=== PATIENT | female | born 1960 | race Caucasian/White ===

== ENCOUNTER 2023-01-15 16:26 | Emergency (ER) | payer BC, SELFPAY ==
--- NOTE | ~2023-01-15 | XR_ITS ---
Clinical Indication: Palpitations PA and lateral views of the chest: Comparison: 05/01/2015 Findings: The lungs are clear, without evidence of focal consolidation or pleural effusion. Cardiome diastinal silhouette is within normal limits. Bones and soft tissues are unremarkable. Impression: Normal chest. Reviewed, dictated and finalized at location . Impression: Normal chest.
--- NOTE | 2023-01-15 16:27 | ECG_ITS ---
Measurements Intervals Golden Rate: 98 P: 44 MO: 182 QRS: -49 QRSD: 94 T: 52 QT: 356 QTc: 456 Interpretive Statements SINUS RHYTHM LEFT AXIS DEVIATION LOW QRS VOLTAGE IN PRECORDIAL LEADS ANTERIOR INFARCT, AGE INDETERMINATE INFERIOR INFARCT, AGE INDETERMINATE ABNORMAL ECG NO PREVIOUS ECG AVAILABLE FOR COMPARISON Electronically Signed On 01-15-2023 16:51:37 CDT by Andrea Villanueva D.O.
[2023-01-15 16:48] VITALS: BP 127/78; PULSE 96; RESP 18; TEMP 36.6; O2SAT 97
[2023-01-15 16:54] LABS: Basophils Absolute Auto 0.1 K/mm3 (0.0-0.1); Basophils Percent Auto 0.7 % (0.2-1.2); Eosinophils Absolute Auto 0.1 K/mm3 (0-0.3); Eosinophils Percent Auto 1.2 % (0-4.4); Hematocrit 42.9 % (37.0-47.0); Hemoglobin 13.8 g/dL (12.0-15.0); Immature Granulocyte Absolute 0.03 K/mm3 (0.00-0.031); Immature Granulocyte Percent A 0.4 % (0-0.5); Lymphocytes Absolute Auto 1.83 K/mm3 (0.9-3.2); Lymphocytes Percent Auto 24.5 % (18.3-44.2); Mean Corpuscular HGB Conc 32.2 g/dl (32-36); Mean Corpuscular Volume 90.1 fl (80-100); Mean Platelet Volume 9.9 fl (7.4-10.4); Monocytes Absolute Auto 0.5 K/mm3 (0.1-0.6); Monocytes Percent Auto 6.6 % (2.6-8.5); Neutrophils Percent Auto 66.6 % (45.5-73.1); Platelet Count Result 210 k/mm3 (150-375); Red Blood Count 4.76 M/mm3 (4.2-5.4); Red Cell Distribution Width 13.1 % (11.5-14.5); White Blood Count 7.5 K/mm3 (4.5-10.0)
[2023-01-15 17:03] LABS: Alanine Aminotransferase 41 U/L (6-35); Albumin Level 4.2 g/dL (3.5-5.1); Alkaline Phosphatase 73 U/L (38-126); Anion Gap 9 mmol/L (8-16); Aspartate Amino Transferase 30 U/L (14-36); Bilirubin,Total 0.4 mg/dL (0.2-1.3); Blood Urea Nitrogen 17 mg/dL (7-17); Calcium 8.6 mg/dL (8.4-10.2); Carbon Dioxide 24 mmol/L (22-30); Chloride 107 mmol/L (98-107); Estimated CRCL calculation 68 ml/min; Estimated Glomerular Filt Rate > 60; Glucose 231 mg/dL (65-110); Lipase 265 U/L (23-300); Potassium 4.1 mmol/L (3.4-5.0); Sodium 140 mmol/L (137-145)
[2023-01-15 17:06] LABS: Partial Thromboplastin Time 25.3 SECONDS (22.3-36.8); Prothrombin Time 13.8 Seconds (11.1-14.7)
[2023-01-15 17:14] LABS: Troponin I < 0.012 ng/mL (0.000-0.034)
[2023-01-15 19:19] VITALS: BP 98/64; PULSE 88; RESP 12; O2SAT 98
--- NOTE | 2023-01-15 19:58 | ED.GENADULT ---
HPI - General Adult General Chief complaint: Arrhythmia/Palpitations Stated complaint: in a-fib Time Seen by Provider: 01/15/23 19:02 History of Present Illness HPI narrative: this is a 62-year-old female presenting ED with chief complaint of palpitations. Patient says that for the last 2 weeks she has been having intermittent episodes where she feels like her heart races, she becomes short of breath and she developed some chest tightness. It can last for minutes to hours. It happens multiple times a day. She says that her chest gets tight but it is not actual chest pain. She has taken her heart rate during these episodes using a cell phone chidi and is typically between 80 and 100 although does not appear regular. Patient denies history of atrial fibrillation, fever chills URI symptoms nausea vomiting or diarrhea. Patient is on Eliquis for DVTs. the patient recently had a thyroid ablation and is on Synthroid. Her Synthroid was reduced from 150-125 about 2 weeks ago because she was having palpitations. 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 Related Data Allergies Allergy/AdvReac Type Severity Reaction Status Date / Time adhesive tape Allergy Unknown Verified 02/29/16 11:33 [facility] Past Medical History Medical History Anxiety Asthma Diabetes DVT (deep venous thrombosis) Hypothyroid Family History Family History Mother Hypertension Family history of malignant neoplasm of breast in first degree relative Father Hypertension Other Cerebrovascular accident Family history of atrial fibrillation Family history of dementia Social History Social History Smoking status: Never smoker Alcohol intake: current Exam Narrative: APPEARANCE: No apparent distress. Head: atraumatic. EYES: EOMI, NOSE: Atraumatic NECK: Trachea midline RESPIRATORY: No increased rate of breathing , clear to auscultation CARDIOVASCULAR: RRR, no peripheral edema ABDOMINAL: Non-distended soft nontender no guarding rate MUSCULOSKELETAl: No obvious deformities NEURO: Alert. Moving 4/4 extremities SKIN:: Warm, dry. Normal color PSYCHIATRIC: Normal affect Course Vital Signs Vital signs: Vital Signs Temperature 98 F 01/15/23 16:48 Pulse Rate 96 01/15/23 16:48 Respiratory Rate 18 01/15/23 16:48 Blood Pressure 127/78 01/15/23 16:48 Pulse Oximetry 97 01/15/23 16:48 Oxygen Delivery Room Air 01/15/23 16:48 Temperature 98 F 01/15/23 16:48 Pulse Rate 88 01/15/23 19:19 Respiratory Rate 12 01/15/23 19:19 Blood Pressure 98/64 L 01/15/23 19:19 Pulse Oximetry 98 01/15/23 19:19 Oxygen Delivery Room Air 01/15/23 16:48 Medical Decision Making MDM Narrative Medical decision making narrative: -Course: 62-year-old female presenting with palpitations. patient's workup was unremarkable except for her TSH was 0.031. this could be the cause of her symptoms. She is going to call her primary care physician and continue to adjust her Synthroid. 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 lives with . -Hx from independent Sources: at Bedside -Independent interpretation of studies: Lab work within normal limits. troponin undetectable x2. Chest x-ray unremarkable. Independent EKG interpretation: Rhythm [sinus], Rate [98], [place] -[ leftward], AL -[normal], QRS [narrow], QTC [normal], T waves -[negative for concerning inversions], ST Segments - [Negative for concerning elevations] Final interpretations: [Normal Sinus Rhythm]
[2023-01-15 20:09] LABS: Troponin I < 0.012 ng/mL (0.000-0.034)
[2023-01-15] MEDS: SODIUM CHLORIDE 0.9% IV 1,000 ML 999 ML IV CONT (20:14)
[2023-01-15 21:36] LABS: NT Pro B Type Natriuretic Pept 219 pg/mL (19.9-100)
[2023-01-15 21:56] LABS: Thyroid Stimulating Hormone Reflex 0.031 uIU/mL (0.465-4.68)
[2023-01-15 22:25] VITALS: BP 115/76; PULSE 78; RESP 16; O2SAT 98
== END 2023-01-15 22:26 | disposition home or self-care (01) ==
PROVIDERS: Emergency Medicine; Emergency Provider Emergency Medicine; PCP Family Medicine
DX: R00.2 Palpitations (principal); E05.90 Thyrotoxicosis, unspecified without thyrotoxic crisis or storm; J45.909 Unspecified asthma, uncomplicated; E11.9 Type 2 diabetes mellitus without complications; E03.9 Hypothyroidism, unspecified; Z86.718 Personal history of other venous thrombosis and embolism; Z79.01 Long term (current) use of anticoagulants
CPT/HCPCS: 36415; 71046; 80053; 83690; 83880; 84439; 84443; 84484; 85025; 85610; 85730; 93005; 96360; 99284; J7030

== ENCOUNTER 2023-03-04 11:18 | Emergency (ER) | payer BC, SELFPAY ==
--- NOTE | ~2023-03-04 | XR_ITS ---
XR toe 5th RT min 2V 03/04/2023 11:41 Indication: Right fifth toe pain Procedure: 3 views right fifth toe Comparison: No prior studies for comparison. Findings: There is an avulsion fracture distal aspect of the fifth proximal phalanx with possible int ra-articular extension. Osteopenia. Mild soft tissue swelling. There are degenerative calcaneal enthe sophytes. Impression: 1: Avulsion fracture distal aspect of the right fifth proximal phalanx. Reviewed, dictated and finalized at location A. Impression: 1: Avulsion fracture distal aspect of the right fifth proximal phalanx.
[2023-03-04 11:28] VITALS: BP 119/78; PULSE 91; RESP 16; TEMP 36.7; O2SAT 99
--- NOTE | 2023-03-04 11:40 | ED.LOWEXIN ---
HPI - Extremity Injury (Lower) General Chief Complaint: Extremity Injury, Lower Stated Complaint: Right Foot Pinky Toe Pain Time Seen by Provider: 03/04/23 11:50 Source: patient and RN notes reviewed Mode of arrival: ambulatory Limitations: no limitations History of Present Illness HPI Narrative: 62-year-old female presents with concern for injury to the right foot. She reports pain at the 5th digit. Reports she stubbed the toe on a picture frame yet last night. She reports bruising proximal to the toe. Related Data Home Medications Medication Instructions Recorded Confirmed bupropion HCl 75 mg tablet mg PO 03/04/23 dapagliflozin propaned 5 PO 03/04/23 mg-metformin ER 1,000 mg tablet, ext rel 24hr (Xigduo XR) dulaglutide 1.5 mg/0.5 mL mg subcut 03/04/23 subcutaneous pen injector (Trulicity) duloxetine 20 mg capsule,delayed mg PO 03/04/23 release glipizide 2.5 mg tablet, extended mg PO 03/04/23 release 24 hr levothyroxine 112 mcg tablet mcg 03/04/23 lisinopril 5 mg tablet mg 03/04/23 rivaroxaban 20 mg tablet (Xarelto) mg 03/04/23 simvastatin 10 mg tablet mg 03/04/23 Allergies Allergy/AdvReac Type Severity Reaction Status Date / Time adhesive tape Allergy Unknown Unknown Verified 03/04/23 11:24 Review of Systems Review of Systems: CONSTITUTIONAL: Denies malaise, chills, sweats, or fever. SKIN: Denies rash or itching, open skin, laceration, abrasion, redness, warmth MUSCULOSKELETAL: Reports pain, bruising to the 5th digit of the right foot NEUROLOGIC: Denies numbness, weakness All systems reviewed & are unremarkable except as noted in HPI and below PMFSH Past Medical History Medical History Anxiety Asthma Diabetes DVT (deep venous thrombosis) Hypothyroid Family History Family History Mother Hypertension Family history of malignant neoplasm of breast in first degree relative Father Hypertension Other Cerebrovascular accident Family history of atrial fibrillation Family history of dementia Social History Social History Smoking status: Never smoker Alcohol intake: current Comments At time of signature, agree with nursing past medical, surgical, social and family history. There is no relevant family history pertinent to the presenting complaint Exam Narrative: GENERAL: Well-appearing, well-nourished, and in no acute distress. HEAD: Normocephalic, atraumatic. EYES: PERRLA, conjunctivae clear NECK: Supple. CHEST: Speaks in full sentences. No respiratory distress. HEART: Regular rate and rhythm. Normal and equal peripheral pulses. EXTREMITIES: 5th digit of the right foot has gross normal strength and sensation, grossly normal range of motion. Mild edema and ecchymosis, with proximal ecchymosis on the dorsal foot. Normal sensation with sensitivity to light touch and pain. No point tenderness. No open wounds, no skin tenting, no devitalized tissue or atrophy, no trophic changes, no obvious deformity, alignment normal, nearby joints and structures intact. Distal pulses palpable and equal bilaterally, skin warm, dry, pink. Capillary refill less than 3 seconds. SKIN: Warm, dry, no rash. NEURO: Alert and oriented x3. PSYCH: Normal mood and affect Course Course Emergency Course: Patient is aware of diagnosis, understands and agrees to treatment plan. Anticipatory guidance given. Patient agrees to follow-up as directed and is aware of reasons to seek care at the emergency department. Portions of this record may have been created with voice recognition software Level of Care: Express Care Visit Vital Signs Vital signs: Vital Signs Temperature 98.0 F 03/04/23 11:28 Pulse Rate 91 03/04/23 11:28 Respiratory Rate 16 03/04/23 11:28 Blood Pressure 119/78 03/04/23 11:28 Pulse Oximetry 99
[2023-03-04 11:58] VITALS: BP 119/78; PULSE 91; RESP 16; TEMP 36.7; O2SAT 99
== END 2023-03-04 12:04 | disposition home or self-care (01) ==
PROVIDERS: Emergency Provider Nurse Practitioner; PCP Family Medicine
DX: S92.511A Displaced fracture of proximal phalanx of right lesser toe(s), initial encounter for closed fracture (principal); W22.8XXA Striking against or struck by other objects, initial encounter; J45.909 Unspecified asthma, uncomplicated; E11.9 Type 2 diabetes mellitus without complications; E03.9 Hypothyroidism, unspecified; Z86.718 Personal history of other venous thrombosis and embolism
CPT/HCPCS: 73660; 99213; G0463